=== PATIENT | female | born 1965 | race Caucasian/White ===

== ENCOUNTER 2016-12-25 06:53 | Emergency (ER) | payer BC ==
[~2016-12-25] VITALS: Ht 167.6 cm; Wt 65.8 kg
[~2016-12-25 06:53] MED LIST: DIVA250T4 PO; ESCI10TA PO; RISP0.5T2 PO; RIVA1PAT3 TOP
--- NOTE | 2016-12-25 07:00 | NUR ---
BB RA FROM HOME FOR POSSIBLE SEIZURE. WITNESSED BY CAREGIVER. PT CONFUSED HX EARLY ALZHEIMERS. PER FAMILY PT CONFUSION IS HER BASELINE. RR EVEN AND UNLABORED. NO SOB NOTED. NAD NOTED. NO NVD AT THIS TIME. PT GOWNED AND PLACED ON MONITOR WAITING FOR MD [place].
--- NOTE | 2016-12-25 07:05 | NUR ---
DR. NOE AT BEDSIDE FOR EVAL.
[2016-12-25] MEDS ORDERED: LORAZEPAM INJ 2 MG/ML VIAL ONE (07:20)
--- NOTE | 2016-12-25 07:21 | NUR ---
CALLED LAB FOR BLOOD DRAW.
--- NOTE | 2016-12-25 07:28 | NUR ---
REPORT GIVEN TO MODE BAIG FOR CONTINUE OF CARE.
[2016-12-25] MEDS ORDERED: LORAZEPAM INJ 2 MG/ML VIAL IVP ONE (07:30)
--- NOTE | 2016-12-25 07:30 | NUR ---
RECEIVED REPORT FROM [facility] FOR SONNY
[2016-12-25 07:38] LABS: BASOPHILS % (AUTO) 0.3 % (0.0-2.0); EOSINOPHILS # (AUTO) 0.2 /CMM (0.0-0.7); EOSINOPHILS % (AUTO) 2.3 % (0.0-6.0); HEMATOCRIT 41 % (33-45); HEMOGLOBIN 13.8 g/dL (11.5-14.8); LYMPHOCYTES # (AUTO) 3.4 /CMM (0.8-4.8); LYMPHOCYTES % (AUTO) 48.9 % (20.0-44.0); MEAN CORPUSCULAR HEMOGLOBIN 32 PG (26.0-33.0); MEAN CORPUSCULAR HGB CONC 34 g/dl (31.0-36.0); MEAN CORPUSCULAR VOLUME 96 fL (82-100); MONOCYTES # (AUTO) 0.7 /CMM (0.1-1.30); NEUTROPHILS # (AUTO) 2.7 /CMM (1.8-8.9); NEUTROPHILS % (AUTO) 38.5 % (43.0-81.0); PLATELET COUNT (AUTO) 159 /CMM (150-450); RDW COEFFICIENT OF VARIATION 12.6 (11.5-15.0); RED BLOOD CELL COUNT(AUTO) 4.25 MIL/uL (4.0-5.2); WHITE BLOOD COUNT (AUTO) 6.9 K/uL (4.3-11.0)
--- NOTE | 2016-12-25 07:39 | NUR ---
URINE COLLECTED. CALLED LAB FOR EVENT SET UP SPECIALIST.
[2016-12-25 07:53] LABS: ALCOHOL, BLOOD < 3 mg/dL (0-0); CALCIUM, SERUM 8.7 mg/dL (8.5-10.1); CARBON DIOXIDE 27 mmol/L (21-32); CHLORIDE 110 mmol/L (98-107); CREATININE 0.9 mg/dL (0.6-1.3); GFR 66 mL/min (>60); GLUCOSE 80 mg/dL (74-106); POTASSIUM 4.3 mmol/L (3.5-5.1); SODIUM SERUM 144 mmol/L (136-145); UREA NITROGEN, BLOOD 16 mg/dL (7-18)
[2016-12-25 07:57] LABS: VALPROIC ACID 18 ug/mL (50-100)
--- NOTE | 2016-12-25 08:00 | NUR ---
SIGNED WAIVER FOR CT SCAN. TAKEN VIA path intelligence.
[2016-12-25 08:30] LABS: CANNABINOID, URINE NEGATIVE (NEGATIVE); PHENCYCLIDINE SCREEN,URINE NEGATIVE (NEGATIVE)
[2016-12-25 08:43] VITALS: BP 108/67
--- NOTE | 2016-12-25 08:52 | NUR ---
IV removed. Catheter intact and site benign. Pressure and 4x4 applied to site. No bleeding noted.
--- NOTE | 2016-12-25 08:52 | NUR ---
Patient discharged to home in stable condition. Written and verbal after care instructions given. Patient verbalizes understanding of instruction.
== END 2016-12-25 08:52 | disposition home or self-care (01) ==
LOC: ER 06:55
DX: R56.9 Unspecified convulsions (principal); G30.9 Alzheimer's disease, unspecified
CPT/HCPCS: 36415; 70450; 80048; 80164; 80305; 85025; 96374; 99285; A4606; G0480; J2060; Z7610